=== PATIENT | female | born 1965 | race Caucasian/White ===

== ENCOUNTER 2017-10-29 23:26 | Emergency (ER) | payer MEDICARE, MEDICAID, SELFPAY | END 2017-10-30 01:07 | disposition home or self-care (01) | PROVIDERS: Emergency Provider Emergency Medicine; Family Provider Family Medicine; Visit Provider Emergency Medicine | DX: M54.42 Lumbago with sciatica, left side (principal); I20.8 Other forms of angina pectoris; K82.9 Disease of gallbladder, unspecified | CPT/HCPCS: 74176; 80053; 81001; 85025; 99284 ==

== ENCOUNTER 2020-10-01 19:22 | Emergency (ER) | payer MEDICARE, SELFPAY ==
[2020-10-01 19:38] VITALS: BMI 34.0
--- NOTE | 2020-10-01 19:38 | XR_ITS ---
PROCEDURE: XR KNEE RT 3V CLINICAL INDICATION: PAIN/SWELLING COMPARISON: CR [id number] KNEE-3 VIEWS-RT from 06/21/2015 CR [id number] XR knee RT 3V from 09/19/2018 CR [id number] XR knee RT 3V from 11/24/2018 CR XR FEMUR RT 2V from 10/01/2019 FINDINGS: Status post ORIF distal femur lateral bone plate. Some of the fracture line is still visible medially. There is good alignment. Status ORIF tibia with lateral bone plate. There osteoarthritic changes at the knee joint. The bone plates are not completely imaged. IMPRESSION: Postsurgical changes. There is incomplete bony union of the distal femur fracture medially. Osteoarthritic changes are also present. Dictated by: Rip Berumen MD 10/02/2020 06:02 Rip Berumen MD in [place] 10/02/2020 06:02
[2020-10-01 19:41] VITALS: BP 145/85; PULSE 81; RESP 20; TEMP 36.8; O2SAT 96; BMI 34.0
--- NOTE | 2020-10-01 19:45 | HMH.EDUTC ---
[facility] [place] Disposition Clinical Impression: Knee sprain Qualifiers: Encounter type: initial encounter Involved ligament of knee: unspecified ligament Laterality: right Qualified Code(s): S83.91XA - Sprain of unspecified site of right knee, initial encounter Disposition: Home, Self-Care Condition on Discharge: Good Instructions: Knee Sprain, DI for Knee Sprain, How To Perform RICE (Rest, Ice, Compress, Elevate), How to Use a Knee Immobilizer Additional Instructions: *RICE, Rest the extremity, Ice 15-20 minutes 3-4 times daily, Compress- wear the wilfrido wrap as discussed as much as possible to help reduce swelling and pain, Elevate the extremity when at rest *Wilfrido wrap is for support and help control swelling, use it except in the shower. Be sure that is not to tight but not to loose either *Elevate when resting *Ibuprofen every 6-8 hours as needed for pain an inflammation. If need something more can take Tylenol in between doses of Ibuprofen to help Immediately follow up with your family doctor for new or worsening of symptoms, or no noticeable improvement over the next 3-5 days Call Orthopedics tomorrow to make appointment for further treatment and evaluation with the Your Orthopedic Physician that did your surgery as you requested Call back to [facility] in the morning for official Radiology reading of xray Return if needed Straight to ER if any life threatening symptoms Prescriptions: Wheelchair 1 each MISCELLANE DIRECTED #1 each Prescription Printed Referrals: Percy Starr [Primary Care Provider] - As needed Time of Disposition: 20:17 Medical Decision Making - Charli Inquiry Pt receiving controlled substance: No Charli was queried for this patient: No Vital Signs: 10/01/20 19:41 Temperature 98.3 F Temperature Source Oral Pulse Rate [Right Brachial] 81 Respiratory Rate 20 Blood Pressure [Right Arm] 145/85 H Blood Pressure Mean [Right Arm] 105 Blood Pressure Source [Right Arm] Automatic Cuff Blood Pressure Position [Right Arm] Sitting 02 Sat by Pulse Oximetry 96 Oxygen Delivery Method Room Air Orders (Tests/Meds): ORDERS Category Date Time Status Knee XR right 3 views [XR knee RT 3V] Stat Exams 10/01/20 19:38 Ordered - Radiology Data #1 Image(s): Knee Image Reviewed: Yes I reviewed the patient's radiology image w/the ED provider Preliminary Findings: No Fracture Seen Medical Decision Narrative: Patient refused Knee immobilizer states that she has one at home and requested acewrap instead, patient has walker at home and wheelchair is broken requesting wheelchair to help with getting around due to knee pain [facility] [place] HPI - General Stated complaint: AO 1121 injured R foot Time Seen by Provider: 10/01/20 19:45 Mode of Arrival: Ambulatory Source of Information: Patient Limitations: No Limitations Description of Symptoms (Recalled from Triage Doc. by RN): PATIENT C/O RIGHT KNEE PAIN AND SWELLING AFTER INJURING IT WALKING DOWN A RAMP AT HER HOME ON THURSDAY HEENT Symptoms (Recalled from RN notes): No Resp Symptoms (Recalled from RN notes): No Skin Symptoms (Recalled from RN notes): No MS Symptoms (Recalled from RN notes): Yes Functional Status (Recalled from RN notes): WNL - History of Present Illness Provider Complaint: Patient states that she was coming down her ramp on Thursday when her walker slipped and she felt a pop States that ever since she has been having pain and swelling States that she had previous surgery on this knee and has bars and plates and she called her orthopedic Doctor and he told her to come in and get an xray to check it out to make sure she didnt mess up her hardware. - Related Data Home Medications Medication Instructions Recorded Confirmed Gabapentin [Gabapentin 300mg Cap] 300 mg PO TID 10/01/20 10/01/20 Oxycodone HCl/Acetaminophen 1 tab PO Q6H PRN 10/01/20 10/01/20 [Percocet 10-325 mg Tablet] Previous Rx's Medication Instructions Recorded Wheelchair 1 each [facility] [place]
[2020-10-01 20:21] VITALS: BP 145/85; PULSE 81; RESP 20; TEMP 36.8; O2SAT 96
== END 2020-10-01 20:25 | disposition home or self-care (01) ==
PROVIDERS: Emergency Provider Nurse Practitioner; PCP Family Medicine
DX: S83.91XA Sprain of unspecified site of right knee, initial encounter (principal); X50.3XXA Overexertion from repetitive movements, initial encounter; Y92.018 Other place in single-family (private) house as the place of occurrence of the external cause; Z88.1 Allergy status to other antibiotic agents
CPT/HCPCS: G0463; 73562; 99201

== ENCOUNTER 2021-02-08 13:57 | Emergency (ER) | payer MEDICARE, SELFPAY ==
--- NOTE | 2021-02-08 13:41 | ECG_ITS ---
APPROVED REPORT Exam: Resting ECG HR:60 bpm ECG Measurements Heart Rate 60 AXES HI 168 P -6 QRSd 92 QRS 34 QT 408 T 42 QTc 408 Conclusion Normal sinus rhythm Normal ECG Electronically signed by : Flynn Mccollum, 02/09/2021 07:41:08
[2021-02-08 13:57] VITALS: BP 133/69; PULSE 67; RESP 18; TEMP 36.4; O2SAT 97; BMI 36.6
--- NOTE | 2021-02-08 14:06 | XR_ITS ---
PROCEDURE: XR CHEST 2V CLINICAL HISTORY: chest pain COMPARISON: CR CXR CHEST(2 VIEWS-NOT PORTABLE) from 01/18/2017 CR CXR CHEST(2 VIEWS-NOT PORTABLE) from 05/05/2017 CR XR CHEST PORTABLE from 10/01/2019 FINDINGS: The cardiomediastinal silhouette and pulmonary vascularity are within normal limits. The lungs are clear without infiltrates, suspicious nodules, or pleural effusions. No acute bony abnormalities. IMPRESSION: No acute findings. Dictated by: Nely Thakkar 02/08/2021 15:00 Nely Thakkar in [place] 02/08/2021 15:00
[2021-02-08 14:14] LABS: Basophils # 0.1 K/mm3 (0-0.2); Basophils % 1.2 % (0.1-2.0); Eosinophils # 0.3 K/mm3 (0.0-0.4); Eosinophils % 4.6 % (0.1-12.0); Hematocrit 41.7 % (37.0-47.0); Hemoglobin 13.3 g/dL (12.2-16.2); Lymphocytes # 1.5 K/mm3 (0.7-4.5); Lymphocytes % 25.3 % (10-50); Mean Corpuscular Hemoglobin 29.5 pg (27.0-31.2); Mean Corpuscular Volume 92.3 fl (81-99); Mean Platelet Volume 6.8 fl (7.4-10.4); Monocytes # 0.4 K/mm3 (0.1-1.0); Monocytes % 5.9 % (1.7-9.3); Neutrophils # 3.7 K/mm3 (1.8-7.8); Neutrophils % 62.9 % (37.0-80.0); Platelet Count 251 K/mm3 (142-424); Red Blood Count 4.52 M/mm3 (4.20-5.40); White Blood Count 5.9 K/mm3 (4.8-10.8)
[2021-02-08 14:21] LABS: Anion Gap 9.7 mEq/L (5-15); Blood Urea Nitrogen 13 mg/dl (7-17); Carbon Dioxide 30 mmol/L (22.0-30.0); Chloride 106 mmol/L (98-107); Creatinine Clearance Estimated 115 mL/min (50-200); Estimated Glomerular Filt Rate 75 ml/min (>60); GFR (African American) 90 ML/MIN (>60); Glucose 97 mg/dl (74-100); Potassium 3.7 mmoL/L (3.5-5.1); Sodium 142 mmol/L (136-145)
--- NOTE | 2021-02-08 14:21 | HMH.EDCP ---
ED Disposition Clinical Impression: Dyspepsia, Nonspecific chest pain Disposition: Home, Self-Care Condition on Discharge: Good Instructions: DI for Chest Pain Prescriptions: Mag Hydrox/Aluminum Hyd/Simeth [Maalox Maximum Strength Susp] 10 ml PO TID #150 oral.susp Transmission Status: Pending to [id number] Famotidine [Pepcid 20mg Tablet] 20 mg PO DAILY #20 tab Transmission Status: Pending to [id number] Referrals: PCP,No [Primary Care Provider] - - Critical Care Critical Care Time: No Attestation: On 02/08/21, the high probability of a clinically significant, sudden or life threatening deterioration of the following system(s) required my full and direct attention, intervention and personal management. The time I documented below is in addition to time spent performing reported procedures but includes the following listed in this critical care notation. Medical Decision Making - Medical Records Medical records reviewed: Yes: I reviewed the patient's medical records. - Charli Inquiry Pt receiving controlled substance: No Vital Signs: 02/08/21 13:57 Temperature 97.6 F Temperature Source Oral Pulse Rate [Left Radial] 67 Respiratory Rate 18 Blood Pressure [Right Arm] 133/69 Blood Pressure Mean [Right Arm] 90 Blood Pressure Source [Right Arm] Automatic Cuff Blood Pressure Position [Right Arm] Sitting 02 Sat by Pulse Oximetry 97 Oxygen Delivery Method Room Air - Lab Data Lab Results 02/08/21 13:53: WBC 5.9, RBC 4.52, Hgb 13.3, Hct 41.7, MCV 92.3, MCH 29.5, MCHC 32.0, RDW 13.0, Plt Count 251, MPV 6.8 L, Neut % (Auto) 62.9, Lymph % (Auto) 25.3, [place] % (Auto) 5.9, Eos % (Auto) 4.6, Baso % (Auto) 1.2, Neut # (Auto) 3.7, Lymph # (Auto) 1.5, [place] # (Auto) 0.4, Eos # (Auto) 0.3, Baso # (Auto) 0.1 02/08/21 13:53: Sodium 142, Potassium 3.7, Chloride 106, Carbon Dioxide 30, Anion Gap 9.7, BUN 13, Creatinine 0.80, Estimated Creat Clear 115, Estimated GFR 75, Est GFR ( Amer) 90, Glucose 97, Calcium 9.0, Troponin I < 0.01 Result diagrams: 02/08/21 13:53 02/08/21 13:53 Orders (Tests/Meds): ED MEDICATIONS Discontinued Medications Generic Name Dose Route Start Last Admin Trade Name Melina PRN Reason Stop Dose Admin Aspirin 324 mg 02/08/21 14:06 02/08/21 14:10 Aspirin 81mg Chewable Tablet PO 02/08/21 14:07 324 mg ONCE ONE Administration Belladonna Alkaloids 60 ml 02/08/21 14:16 02/08/21 14:30 Gi Cocktail 60ml Udc PO 02/08/21 14:17 60 ml ONCE ONE Administration ORDERS Category Date Time Status XR chest 2V Stat Exams 02/08/21 14:06 Taken Troponin I Q3H Lab 02/08/21 17:15 Ordered Troponin I Q3H Lab 02/08/21 20:15 Ordered - Radiology Data #1 Image(s): Chest Image Reviewed: Yes I reviewed the patient's radiology results, Yes I have reviewed radiologist's interpretation Preliminary Findings: Normal/NAD - ECG Data Tracing #1 ECG initial impression date: 02/08/21 ECG initial impression time: 13:43 ECG normal with no acute: arrhythmias, ischemia, conduction abnormalities, chamber hypertrophy Normal Sinus Rhythm: Yes - Reevaluation(s) Time: 15:03 Reevaluation #1: On reevaluation, the patient is feeling much better. Patient states her pain is significantly improved. Troponin is negative. Patient is low risk for acute coronary syndrome based on heart score. Patient is to follow-up with PCP in 24 hours. Given strict return precautions. Verbalized understanding. Medical Decision Narrative: 55-year-old female presented to the emergency department with some subacute chest discomfort. The patient has had the symptoms after eating and drinking. I do believe this is consistent with dyspepsia or peptic ulcer disease. Patient is low risk for acute coronary syndrome based on heart score. Work-up initiated. Chest Pain HPI - General Chief Complaint: Chest Pain Stated Complaint: chest pain Time Seen by Provider: 02/08/21 14:00 Mode of Ar
[2021-02-08 14:36] LABS: Troponin I < 0.01 ng/ml (0.00-0.034)
[2021-02-08 15:14] VITALS: BP 137/74; PULSE 65; RESP 15; O2SAT 99
[2021-02-08 15:32] VITALS: BP 137/74; PULSE 65; RESP 18; TEMP 36.4; O2SAT 99
== END 2021-02-08 15:34 | disposition home or self-care (01) ==
PROVIDERS: Emergency Provider Emergency Medicine
DX: R10.13 Epigastric pain (principal); R07.89 Other chest pain
CPT/HCPCS: 71046; 80048; 84484; 85025; 93005; 99282

== ENCOUNTER 2022-06-13 19:15 | Emergency (ER) | payer MEDICARE, MEDICAID, SELFPAY ==
[2022-06-13 19:15] VITALS: BP 139/87; PULSE 94; RESP 18; TEMP 36.6; O2SAT 98; BMI 35.3
--- NOTE | 2022-06-13 19:34 | HMH.EDUTC ---
[place] Disposition Clinical Impression: Lower extremity pain Qualifiers: Laterality: left Qualified Code(s): M79.605 - Pain in left leg Disposition: Left Against Medical Advice Condition on Discharge: Fair Referrals: Percy Starr [Primary Care Provider] - Time of Disposition: 19:54 Medical Decision Making - Charli Inquiry Pt receiving controlled substance: No Charli was queried for this patient: No Vital Signs: 06/13/22 19:15 06/13/22 19:49 Temperature 97.8 F 97.8 F Temperature Source Oral Pulse Rate 94 H Pulse Rate [Right Brachial] 94 H Respiratory Rate 18 18 Blood Pressure 139/87 Blood Pressure [Right Arm] 139/87 Blood Pressure Mean [Right Arm] 104 Blood Pressure Source [Right Arm] Automatic Cuff Blood Pressure Position [Right Arm] Sitting 02 Sat by Pulse Oximetry 98 Oxygen Delivery Method Room Air Medical Decision Narrative: Due to patient complaining of numbness shocking like pain in left leg without injury and discoloration of first 3 toes discussed with patient and recommended transfer to the ED for further work up and evaluation and patient agreed Called ED spoke with Cheyanne and patient was assigned room 9 Upon transfer to the ED patient declined transfer and said that she just wanted to go home and she would follow up with her family doctor in the morning discussed with patient risks and even and again recommended transfer to the ED for lab work and more extensive testing and she declined and signed AMA and left against medical advise Patient verbalized risks associated with leaving and still declined transfer and left [place] HPI - General Stated complaint: Pain Left foot and leg Time Seen by Provider: 06/13/22 19:35 Mode of Arrival: Ambulatory Source of Information: Patient Limitations: No Limitations Description of Symptoms (Recalled from Triage Doc. by RN): PATIENT C/O PAIN TO LEFT LEG X 2 DAYS HEENT Symptoms (Recalled from RN notes): No Resp Symptoms (Recalled from RN notes): No Skin Symptoms (Recalled from RN notes): No MS Symptoms (Recalled from RN notes): No Functional Status (Recalled from RN notes): WNL - History of Present Illness Provider Complaint: Patient states that for that last few days she has been having numb/shock like feeling in her left left ankle that shoots shock like pain up her leg States that she is barely able to walk and has to stay close to wheelchair and cane to keep from falling. States that she noticed her toes looked a funny color and looked blue but her toenail looked yellow States that she called her PCP earlier today but they couldnt get her in so she laid down and said the pain got worse and it is a constant achy like pain that shoots from her ankle up the back of her calf Denies known injury - Related Data Home Medications Medication Instructions Recorded Confirmed Gabapentin [Gabapentin 300mg Cap] 300 mg PO TID 10/01/20 10/01/20 Oxycodone HCl/Acetaminophen 1 tab PO Q6H PRN 10/01/20 10/01/20 [Percocet 10-325 mg Tablet] Previous Rx's Medication Instructions Recorded Wheelchair 1 each MISCELLANE DIRECTED #1 10/01/20 each Famotidine [Pepcid 20mg Tablet] 20 mg PO DAILY #20 tab 02/08/21 Mag Hydrox/Aluminum Hyd/Simeth 10 ml PO TID #150 oral.susp 02/08/21 [Maalox Maximum Strength Susp] Allergies Allergy/AdvReac Type Severity Reaction Status Date / Time iopamidol [IOPAMIDOL] Allergy Intermediate LEGS SHAKY Verified 10/01/19 14:48 erythromycin base Allergy Mild Verified 10/01/19 14:48 [ERYTHROMYCIN BASE] propoxyphene Allergy Mild Verified 10/01/19 14:48 [From SHANELLET-N] - Worker's Comp Is this a Worker's Comp case?: No [facility] History - Hepatitis A Screen Attestation statement:: This patient has been screened for Hepatitis A risk factors. I have reviewed the patient's past medical history: Yes Medical History: Reports:: Cancer - Social History Alcohol Intake: never Occupational Status: other
--- NOTE | 2022-06-13 19:43 | PC.NURSE ---
PATIENT SENT TO ER PER Jenn JEROME APRN FOR FURTHER EVALUATION. REPORT GIVEN TO TAMMIE TYLER BY Jenn JEROME APRN
--- NOTE | 2022-06-13 19:48 | PC.NURSE ---
PATIENT REFUSED TRANSFER TO ER AT THIS TIME
[2022-06-13 19:49] VITALS: BP 139/87; PULSE 94; RESP 18; TEMP 36.6; O2SAT 98
== END 2022-06-13 19:55 | disposition left against medical advice (07) ==
PROVIDERS: Emergency Provider Nurse Practitioner; PCP Family Medicine
DX: M79.605 Pain in left leg (principal)
CPT/HCPCS: 99212; G0463

== ENCOUNTER → 2022-09-29 11:29 | Outpatient (CLI) | payer MEDICARE, MEDICAID, SELFPAY ==
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
== END ==
PROVIDERS: Visit Provider Pain Medicine Interventional Pain Medicine
DX: M25.561 Pain in right knee (principal); Z79.899 Other long term (current) drug therapy
CPT/HCPCS: 73562

== ENCOUNTER → 2022-11-07 13:02 | Outpatient (CLI) | payer MEDICARE, MEDICAID, SELFPAY ==
--- NOTE | 2022-11-07 13:12 | XR_ITS ---
FINAL REPORT CLINICAL HISTORY: RT KNEE PAIN - RT Calf pain COMPARISON: 09/29/2022 FINDINGS: RIGHT KNEE 3 views of the right knee were obtained. There are postoperative changes of the distal femur and proximal tibia. The hardware appears stable. There is a chronic fracture of the distal femur which is stable. There is no acute fracture or dislocation. Visualized joint spaces are normally aligned. Joint spaces are intact. Soft tissues are unremarkable. IMPRESSION: Stable postoperative changes. Reviewed, Interpreted and Dictated by Martín Munoz III, MD Transcribed by Mary Santana Authenticated and [facility]
--- NOTE | 2022-11-07 13:12 | XR_ITS ---
FINAL REPORT CLINICAL HISTORY: RT LEG PAIN COMPARISON: October 01, 2019 FINDINGS: RIGHT TIBIA FIBULA 2 views were obtained. There are postoperative changes of the proximal and distal tibia. Hardware appears stable. There is no acute fracture or dislocation. There is a mild chronic deformity of the medial malleolus. There is no soft tissue abnormality. IMPRESSION: Postoperative changes, stable with no new abnormality. Reviewed, Interpreted and Dictated by Martín Munoz III, MD Transcribed by Mary Santana Authenticated and [facility]
== END ==
PROVIDERS: PCP Family Medicine; Visit Provider Pain Medicine Interventional Pain Medicine
DX: M79.604 Pain in right leg (principal); M25.561 Pain in right knee
CPT/HCPCS: 73562; 73590

== ENCOUNTER 2023-04-18 13:13 | Emergency (ER) | payer MEDICARE, MEDICAID, SELFPAY ==
[2023-04-18 13:13] VITALS: BP 169/110; PULSE 75; RESP 18; TEMP 36.6; O2SAT 96; BMI 38.9
--- NOTE | 2023-04-18 13:17 | ECG_ITS ---
APPROVED REPORT Exam: Resting ECG HR:74 bpm ECG Measurements Heart Rate 74 AXES AR 176 P 3 QRSd 96 QRS 33 QT 381 T 47 QTc 408 Conclusion SINUS RHYTHM Normal ECG UNCONFIRMED REPORT Electronically signed by : Flynn Mccollum MD 04/19/2023 09:00:09
--- NOTE | 2023-04-18 13:20 | XR_ITS ---
PROCEDURE INFORMATION: Exam: XR Chest Exam date and time: 04/18/2023 1:22 PM Age: 57 years old Clinical indication: Chest wall pain; Patient HX: Chest pain; Additional info: Cp TECHNIQUE: Imaging protocol: Radiologic exam of the chest. Views: 1 view. COMPARISON: CR XR CHEST 2V 02/08/2021 2:26 PM FINDINGS: Lungs: No acute airspace consolidation. No appreciable pulmonary edema. Pleural spaces: No pleural effusion. No pneumothorax. Heart/Mediastinum: Cardiac silhouette is upper limits of normal size. Bones/joints: No evidence of acute osseous abnormality. IMPRESSION: No acute findings.
--- NOTE | 2023-04-18 13:21 | HMH.EDCP ---
Discharge Plan Disposition Patient Disposition: Home, Self-Care Chief Complaint: Chest Pain Prescriptions Prescriptions: No Action oxycodone-acetaminophen 1 EACH tablet 1 tab PO Q6H PRN (Reason: PAIN) gabapentin 300 MG capsule 300 mg PO TID (DME) wheelchair 1 EACH device 1 each MISCELLANE DIRECTED Qty: 1 0RF famotidine 20 MG tablet 20 mg PO DAILY Qty: 20 0RF alum-mag hydroxide-simeth 355 ML suspension 10 ml PO TID Qty: 150 0RF Referrals Follow up/Referrals: Provider,Referral, [Primary Care Provider] - See instructions Activity Restrictions/Add. 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 Return to the emergency department if you feel worse in any way. I recommend you try taking some Tums because your pain may be due to gastroesophageal reflux disease or spasm. Return to the emergency department immediately if you feel worse in any way. Continue taking all medications as prescribed. Clinical Impressions Clinical Impression: Atypical chest pain Instructions Patient Instructions: DI for Atypical Chest Pain Discharge ED Provider: Anam Pa Chest Pain HPI General Chief Complaint: Chest Pain Stated Complaint: CP Time Seen by Provider: 04/18/23 13:14 Mode of Arrival: EMS Source of Information: Patient History of Present Illness HPI narrative: Patient presents to the emergency department via EMS. She states that she has had chest pain since yesterday about 7 PM. The pain is intermittent. The longest it has lasted is 10 minutes. She has known valvular disease. She has not had bypass surgery. She has a history of hypertension. She denies smoking. She denies having diabetes. She denies nausea or vomiting, diarrhea or fever. NIXON Score for Non-Stemi Age of Patient: 50-59 years old Heart Rate: 70-89 bpm Systolic Blood Pressure: 160-199 mmHg Serum Creatinine: 0.80-1.19 mg/dl CHF [place] Class: I-No CHF Other Risk Factors: None Non-Stemi Risk Score: 67 Related Data Home Medications Medication Instructions Recorded Confirmed gabapentin 300 mg capsule 300 mg PO TID SLEEP 10/01/20 10/01/20 oxycodone-acetaminophen 10 mg-325 1 tab PO Q6H PRN PAIN 10/01/20 10/01/20 mg tablet Previous Rx's Medication Instructions Recorded wheelchair #1 ea 10/01/20 aluminum-mag hydroxide-simethicone 10 ml PO TID ##150 02/08/21 400 mg-400 mg-40 mg/5 mL oral susp famotidine 20 mg tablet 20 mg PO DAILY #20 tabs 02/08/21 Allergies Allergy/AdvReac Type Severity Reaction Status Date / Time iopamidol [IOPAMIDOL] Allergy Intermediate LEGS SHAKY Verified 04/18/23 13:58 erythromycin base Allergy Mild Verified 04/18/23 13:58 [ERYTHROMYCIN BASE] propoxyphene Allergy Mild Verified 04/18/23 13:58 [From DARVOCET-N] [facility] Disclaimer: The information contained in this section may have been updated after the patient was seen, as this information can be updated by other users. Social History Smoking Status: Never smoker alcohol intake: never current occupational status: other Travel in the last 8 weeks: None ROS Obtained: Yes All systems reviewed & no additional complaints except as documented Physical Exam General General appearance: alert and in no apparent distress Head Head exam: atraumatic Eye Eye exam: Present normal appearance; Absent scleral icterus or jaundice ENT ENT exam: Present normal exam Neck Neck exam: Present normal inspection and full ROM; Absent tenderness or meningismus Chest Chest inspection: Present normal inspection and symmetric chest wall rise; Absent tenderness Respiratory Respiratory exam: Present normal lung sounds bilaterally; Absent respiratory distress or accessory muscle use Cardiovascular Cardiovascular exam: Present regular rate, normal rhythm and normal heart sounds Abdominal Exa
[2023-04-18 13:30] VITALS: BP 155/96; PULSE 70; O2SAT 95
--- NOTE | 2023-04-18 13:39 | PC.NURSE ---
with patients permission, son and daughter verbally updated on POC.
[2023-04-18 14:00] VITALS: BP 150/91; PULSE 71; O2SAT 96
[2023-04-18 14:09] LABS: Basophils # 0.1 K/mm3 (0-0.2); Basophils % 0.8 % (0.1-2.0); Eosinophils # 0.2 K/mm3 (0.0-0.4); Eosinophils % 2.1 % (0.1-12.0); Hematocrit 42.7 % (37.0-47.0); Hemoglobin 13.9 g/dL (12.2-16.2); Lymphocytes # 1.7 K/mm3 (0.7-4.5); Lymphocytes % 23.6 % (10-50); Mean Corpuscular HGB Conc 32.5 g/dL (31.8-35.4); Mean Corpuscular Hemoglobin 29.4 pg (27.0-31.2); Mean Corpuscular Volume 90.5 fl (81-99); Mean Platelet Volume 7.4 fl (7.4-10.4); Monocytes # 0.5 K/mm3 (0.1-1.0); Monocytes % 7.1 % (1.7-9.3); Neutrophils # 4.7 K/mm3 (1.8-7.8); Neutrophils % 66.4 % (37.0-80.0); Platelet Count 277 K/mm3 (142-424); Red Blood Count 4.72 M/mm3 (4.20-5.40)
[2023-04-18 14:13] LABS: Chloride 103 mmol/L (98-107); Potassium 3.8 mmoL/L (3.5-5.1); Sodium 141 mmol/L (136-145)
[2023-04-18 14:16] LABS: Alanine Aminotransferase 31 U/L (12-78); Albumin Level 4.3 g/dl (3.5-5.0); Albumin/Globulin Ratio 1.3 (1.1-1.8); Alkaline Phosphatase 105 U/L (38-126); Anion Gap 12.8 mEq/L (5-15); Aspartate Amino Transferase 39 U/L (14-36); Bilirubin,Total 0.5 mg/dl (0.2-1.3); Blood Urea Nitrogen 14 mg/dl (7-17); Carbon Dioxide 29 mmol/L (22.0-30.0); Creatinine Clearance Estimated 124 mL/min (50-200); Estimated Glomerular Filt Rate 74 ml/min (>60); GFR (African American) 90 ML/MIN (>60); Globulin 3.4 g/dL (1.3-3.2); Glucose 86 mg/dl (74-100); Lipase 52 U/L (23-300); Total Protein,Serum 7.7 g/dl (6.3-8.2)
[2023-04-18 14:30] VITALS: BP 163/90; PULSE 68; O2SAT 97
[2023-04-18 14:30] LABS: Troponin I < 0.01 ng/ml (0.00-0.034)
[2023-04-18 15:07] VITALS: BP 156/96; PULSE 75; RESP 20; TEMP 36.6; O2SAT 97
== END 2023-04-18 15:07 | disposition home or self-care (01) ==
PROVIDERS: Emergency Provider Emergency Medicine
DX: R07.89 Other chest pain (principal); I10 Essential (primary) hypertension
CPT/HCPCS: 71045; 80053; 83690; 84484; 85025; 93005; 96374; 99285

== ENCOUNTER → 2023-07-24 08:18 | Outpatient (CLI) | payer MEDICARE, MEDICAID, SELFPAY ==
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
--- NOTE | 2023-07-24 08:23 | MR_ITS ---
FINAL REPORT CLINICAL HISTORY: RADICULOPATHY lower back pain with bilateral leg pain , mainly in right hip x few years COMPARISON: None FINDINGS: Multiplanar MR imaging of the lumbar spine was performed without contrast. On the sagittal T2-weighted images, disc degeneration is seen at multiple levels. The vertebral alignment is normal. Multiple Schmorl's nodes are noted. There are endplate changes at multiple levels. No bony mass is identified. The conus has an unremarkable appearance. T12-L1: Annular disc bulge and facet arthropathy. Mild right neuroforaminal narrowing. L1-2: There is no significant canal stenosis or neural foraminal narrowing. L2-3: Annular disc bulge and facet arthropathy. Right foraminal disc protrusion. Moderate right and mild left neuroforaminal narrowing. L3-4: Annular disc bulge and facet arthropathy. Right foraminal disc protrusion. Mild bilateral neuroforaminal narrowing. L4-5: Annular disc bulge and facet arthropathy. Moderate bilateral neuroforaminal narrowing. L5-S1: Annular disc bulge and facet arthropathy. Mild left neuroforaminal narrowing. IMPRESSION: Multilevel degenerative disc disease and spondylosis as described. Disc protrusions at L2-3 and L3-4. Reviewed, Interpreted and Dictated by Martín Munoz III, MD Transcribed by Esther Alvarado Authenticated and [facility]
== END ==
PROVIDERS: Visit Provider Pain Medicine Interventional Pain Medicine
DX: M16.11 Unilateral primary osteoarthritis, right hip (principal); M47.816 Spondylosis without myelopathy or radiculopathy, lumbar region
CPT/HCPCS: 72148; 73721; 76376

== ENCOUNTER → 2023-10-13 09:27 | Outpatient (CLI) | payer MEDICARE, MEDICAID, SELFPAY ==
--- NOTE | 2023-10-13 09:32 | XR_ITS ---
FINAL REPORT CLINICAL HISTORY: right hip pain FINDINGS: 2 views of the right hip and an AP pelvis were obtained. There is no acute fracture or dislocation. There is postoperative change of the proximal right femur. There are mild degenerative changes of the hip. IMPRESSION: Degenerative and postoperative changes. Reviewed, Interpreted and Dictated by Martín Munoz III, MD Transcribed by Giovani Webb Authenticated and [facility]
== END ==
LOC: RAD 09:30
PROVIDERS: Visit Provider Orthopaedic Surgery
DX: M25.551 Pain in right hip (principal)
CPT/HCPCS: 73502

== ENCOUNTER 2024-06-12 14:03 | Emergency (ER) | payer MEDICARE, MEDICAID, SELFPAY ==
[2024-06-12 14:15] VITALS: BP 120/70; PULSE 83; RESP 20; TEMP 37.3; O2SAT 99; BMI 38.4
--- NOTE | 2024-06-12 14:28 | EXP.UTC ---
Discharge Plan Disposition Patient Disposition: Home, Self-Care Condition: Good Prescriptions Prescriptions: New valacyclovir 1 gram tablet 1,000 mg PO Q8H 7 Days Qty: 21 0RF ondansetron 4 mg tablet,disintegrating 4 mg PO Q8H PRN (Reason: nausea and vomiting) Qty: 10 0RF No Action meloxicam 15 mg tablet 15 mg PO DAILY Qty: 30 2RF oxycodone-acetaminophen 1 EACH tablet 1 tab PO Q6H PRN (Reason: PAIN) gabapentin 300 MG capsule 300 mg PO TID (DME) wheelchair 1 EACH device 1 each MISCELLANE DIRECTED Qty: 1 0RF famotidine 20 MG tablet 20 mg PO DAILY Qty: 20 0RF alum-mag hydroxide-simeth 355 ML suspension 10 ml PO TID Qty: 150 0RF Referrals Follow up/Referrals: Provider,Referral, MD [Primary Care Provider] - See instructions Activity Restrictions/Add. Instructions Additional Instructions/Restrictions: Take medication as prescrbed Over the counter Calamine lotion may help to soothe the rash Follow up with your Family Doctor if needed Straight to ER if any life threatening symptoms Clinical Impressions Clinical Impression: Shingles Instructions Patient Instructions: DI for Shingles, Shingles, Valacyclovir Print Language Print Language: Maltese Discharge ED Provider: Clemencia Hoffman [facility] General Stated complaint: vomiting pain right side down to leg Mode of Arrival: Ambulatory Source of Information: Patient Limitations: No Limitations Time Seen by Provider: 06/12/24 14:28 Description of Symptoms (Recalled from Triage Doc. by RN): PATIENT C/O RASH AND PAIN TO RIGHT SIDE, VOMITING, AND CHILLS X 2 DAYS HEENT Symptoms (Recalled from RN notes): No Resp Symptoms (Recalled from RN notes): No Skin Symptoms (Recalled from RN notes): Yes MS Symptoms (Recalled from RN notes): No Functional Status (Recalled from RN notes): WNL History of Present Illness Provider Complaint: Patient states that thinks she has shingles states that 2 days ago she started with a rash on her right buttock area that has continued to get worse, sore to the touch and it makes her sick at her stomach and has chills from the pain Related Data Home Medications ?Medication ?Instructions ?Recorded ?Confirmed gabapentin 300 mg capsule 300 mg PO TID SLEEP 10/01/20 10/22/23 oxycodone-acetaminophen 10 mg-325 1 tab PO Q6H PRN PAIN 10/01/20 10/22/23 mg tablet Previous Rx's ?Medication ?Instructions ?Recorded wheelchair #1 ea 10/01/20 aluminum-mag hydroxide-simethicone 10 ml PO TID ##150 02/08/21 400 mg-400 mg-40 mg/5 mL oral susp famotidine 20 mg tablet 20 mg PO DAILY #20 tabs 02/08/21 meloxicam 15 mg tablet 15 mg PO DAILY #30 tabs 10/22/23 ondansetron 4 mg disintegrating 4 mg PO Q8H PRN nausea and 06/12/24 tablet vomiting #10 tabs valacyclovir 1 gram tablet 1,000 mg PO Q8H 7 days #21 tabs 06/12/24 Allergies Allergy/AdvReac Type Severity Reaction Status Date / Time iopamidol [IOPAMIDOL] Allergy Intermediate LEGS SHAKY Verified 10/22/23 10:27 erythromycin base Allergy Mild Verified 10/22/23 10:27 [ERYTHROMYCIN BASE] propoxyphene Allergy Mild Verified 10/22/23 10:27 [From DARVOCET-N] Worker's Comp Is this a Worker's Comp case?: No [facility] Disclaimer: The information contained in this section may have been updated after the patient was seen, as this information can be updated by other users. Medical History (Updated 06/12/24 @ 14:35 by Clemencia Hoffman APRN) Cancer Surgical History (Updated 10/22/23 @ 10:28 by Db Carmona CMA) H/O total knee replacement Total knee replacement status Social History Smoking Status: Never smoker alcohol intake: never current occupational status: other Travel in the last 8 weeks: None ROS Obtained: Yes All systems reviewed & no additional complaints except as documented and Yes Systems reviewed as appropriate & no additional complaints except as documented Constitutional Constitutional: Reports system reviewed and no additional complaints, except as documented, Reports as per HPI and Reports chills ENT Ears, Nose, Mouth, and Throat: Reports system reviewed and no additional complaints, except as documented and Reports as per HPI Cardiovascular Cardiovascular: Reports system reviewed and no additional complaints, except as documented and Reports as per HPI Respiratory Respiratory: Reports system reviewed and no additional complaints, except as documented and Reports as per HPI Gastrointestinal Gastrointestingal: Reports system reviewed and no additional complaints, except as documented, as per HPI, nausea and vomiting Genitourinary Female Genitourinary: Reports system reviewed and no additional complaints, except as documented and Reports as per HPI Integumentary/Breasts Skin/Breast: Reports system reviewed and no additional complaints, except as documented, Reports as per HPI and Reports other Comments: Rash on buttock area thinks it may be shingles Physical Exam General General appearance: alert and in no apparent distress ENT ENT exam: Present mucous membranes moist Respiratory Respiratory exam: Present normal lung sounds bilaterally; Absent respiratory distress or wheezes Cardiovascular Cardiovascular exam: Present regular rate, normal rhythm and normal heart sounds Neurological Exam Neurological exam: Present alert, oriented X3 and normal gait Skin Skin exam: Present rash (red blister like rash noted on right buttock area appears like shingles ) Medical Decision Making Charli Inquiry Pt receiving controlled substance: No Charli was queried for this patient: No Vital Signs: 06/12/24 14:15 Temperature 99.2 F Temperature Source Oral Pulse Rate [Left Brachial] 83 Respiratory Rate 20 Blood Pressure [Left Arm] 120/70 Blood Pressure Mean [Left Arm] 86 Blood Pressure Source [Left Arm] Automatic Cuff Blood Pressure Position [Left Arm] Sitting 02 Sat by Pulse Oximetry 99 Oxygen Delivery Method Room Air
[2024-06-12 14:36] VITALS: BP 120/70; PULSE 83; RESP 20; TEMP 37.3; O2SAT 99
== END 2024-06-12 14:39 | disposition home or self-care (01) ==
PROVIDERS: Emergency Provider Nurse Practitioner
DX: B02.9 Zoster without complications (principal); R11.2 Nausea with vomiting, unspecified; R68.83 Chills (without fever)
CPT/HCPCS: 99212; 99214; G0463